=== PATIENT | male | born 1985 | race Caucasian/White ===

== ENCOUNTER 2018-08-21 12:50 | Inpatient (IN) | payer BC ==
[~2018-08-21 12:50] MED LIST: Iopamidol 370 76% 100 ML VIAL ONE
[2018-08-21 13:09] LABS: #Basophils 0.1 thou/uL (0.0-0.2); #Eosinphils 0.1 thou/uL (0.0-0.7); #Lymphocytes 2.5 thou/uL (1.20-3.40); #Monocytes 0.8 thou/uL (0.11-0.59); #Neutrophils 8.6 thou/uL (1.40-6.50); %Basophils 0.9 % (0.0-1.0); %Eosinophils 0.5 % (0.0-10.0); %Lymphocytes 21.1 % (21.0-51.0); %Monocytes 6.2 % (0.0-10.0); %Neutrophils 71.3 % (42.0-75.0); Hemoglobin 15.6 g/dL (14.0-18.0); Mean Corpuscular HGB CONC 33.3 g/dL (32.0-36.0); Mean Corpuscular Hemoglobin 28.8 pg (27.0-31.0); Mean Corpuscular Volume 86.4 fL (78.0-98.0); Mean Platelet Volume 7.4 fL (7.4-10.4); Platelet Count 273 thou/uL (130-400); RBC Distribution Width 12.2 % (11.5-14.5); Red Blood Cell (RBC) Count 5.41 mill/uL (4.70-6.10)
[2018-08-21] MEDS ORDERED: Glycopyrrolate 0.2 MG/ML 5 ML SYRINGE ONE (13:14)
[2018-08-21] MEDS ORDERED: Ondansetron PF 4 MG/2 ML Vial ONE (13:14)
[2018-08-21] MEDS ORDERED: Vecuronium 10 MG VIAL ONE ×2 (13:14→13:44)
[2018-08-21] MEDS ORDERED: ePHEDrine/0.9% NaCl/PF SYRINGE 50 mg/10 ml ONE (13:14)
[2018-08-21] MEDS ORDERED: Heparin 5,000 UNITS/ML VIAL ONE (13:14)
[2018-08-21] MEDS ORDERED: Papaverine 60 MG/2 ML VIAL ONE (13:14)
[2018-08-21] MEDS ORDERED: Calcium Chloride 1 GM/10 ML Abboject SYRINGE ONE (13:14)
[2018-08-21] MEDS ORDERED: Lidocaine 2% PF 100 mg/5 ml Syringe ONE (13:14)
[2018-08-21] MEDS ORDERED: Cardioplegic Soln 1,000 ML BAG ONE (13:14)
[2018-08-21] MEDS ORDERED: Potassium Chloride 60 MEQ/30 ML VIAL ONE (13:14)
[2018-08-21] MEDS ORDERED: Protamine Sulfate 250 MG/25 ML VIAL ONE (13:14)
[2018-08-21] MEDS ORDERED: Thrombin 5000 UNITS/5 ML VIAL ONE (13:14)
[2018-08-21] MEDS ORDERED: Heparin 0 ML ONE (13:14)
[2018-08-21] MEDS ORDERED: Aminocaproic Acid 5 GM/20 ML VIAL ONE (13:14)
[2018-08-21] MEDS ORDERED: Heparin 30,000 units/30 ml VIAL ONE (13:14)
[2018-08-21] MEDS ORDERED: Dexamethasone 20 MG/5 ML VIAL ONE (13:14)
[2018-08-21] MEDS ORDERED: PHENYLEPHRINE-NS 100 MCG/ML 10 ML SYRINGE ONE (13:14)
[2018-08-21] MEDS ORDERED: Mannitol 12.5 GM/50 ML ONE (13:14)
[2018-08-21] MEDS ORDERED: Magnesium 5 GM/10 ML VIAL ONE (13:14)
[2018-08-21] MEDS ORDERED: Ketorolac Tromethamine 30 MG/ML VIAL ONE (13:14)
[2018-08-21] MEDS ORDERED: Sodium Bicarb 50 MEQ/50 ML VIAL ONE (13:14)
[2018-08-21 13:15] LABS: Prothrombin Time 13.3 SEC (12.0-14.7)
[2018-08-21] MEDS ORDERED: Midazolam HCl 2 mg/2 ml Vial ONE ×2 (13:15→13:44)
[2018-08-21 13:26] LABS: PTT 136.3 SEC (22.9-36.1)
[2018-08-21 13:32] LABS: ALT (SGPT) 18 U/L (8-55); AST (SGOT) 25 U/L (5-34); Alkaline Phosphatase 104 U/L (40-150); Anion Gap 14 mmol/L (10-20); BUN (Urea Nitrogen) 11 mg/dL (8.9-20.6); Bilirubin, Total 0.5 mg/dL (0.2-1.2); CK (CPK) 221 U/L (30-200); Calc. Creatinine Clearance 0 mL/min (70-130); Calcium 9.5 mg/dL (7.8-10.44); Carbon Dioxide 19 mmol/L (22-29); Chloride 107 mmol/L (98-107); Estimated GFR-MDRD Greater than 90; Globulin 2.5 g/dL (2.4-3.5); Glucose 94 mg/dL (70-105); Potassium 3.7 mmol/L (3.5-5.1); Protein, Total 6.5 g/dL (6.0-8.3); Sodium 136 mmol/L (136-145)
[2018-08-21] MEDS ORDERED: Albumin 5% 500 ML ONE (13:34)
[2018-08-21 13:41] LABS: CKMB 33.1 ng/mL (0-6.6); Troponin I 2.226 ng/mL (< 0.028)
[2018-08-21] MEDS ORDERED: Midazolam HCl 5 mg/5 ml Vial ONE (13:44)
[2018-08-21] MEDS ORDERED: Dexmedetomidine 200 MCG/2 ML VIAL ONE (13:44)
[2018-08-21] MEDS ORDERED: Fentanyl 100 MCG/2 ML VIAL ONE (13:44)
[2018-08-21] MEDS ORDERED: Heparin 10,000 UNITS/1 ML VIAL 30,000 UNITS in Sodium Chloride 0.9% 1,000 ML FS SCH (13:45)
[2018-08-21] MEDS ORDERED: Lidocaine 1% (PF) 30 ML VIAL ONE (14:00)
[2018-08-21] MEDS ORDERED: Nitroglycerin 50 MG/250 ML BOT 250 ML ONE (14:05)
[2018-08-21] MEDS ORDERED: Clindamycin/D5W 900 mg/50 ml Premix Bag ONE (14:18)
[2018-08-21] MEDS ORDERED: Levofloxacin 500 mg/D5W 100 ml Premix Bag ONE (14:18)
--- NOTE | 2018-08-21 14:18 | HP ---
HISTORY OF PRESENT ILLNESS: Toni Martin is a 33-year-old white male who denies any previous episodes of chest discomfort. Last night at 7 p.m. while watching TV he started to have chest pressure. This continued until he went to sleep. He then was awakened at 3:30 a.m. with much more intense chest discomfort associated with diaphoresis, shortness of breath, and nausea, but no vomiting. The pain was not pleuritic. He went to the emergency room in [place] and was found to have changes consistent with anterolateral STEMI. He was given aspirin as well as heparin and placed on heparin drip and then helicoptered here. He continues to complain of discomfort at this time. PAST MEDICAL HISTORY: Denies history of hypertension, diabetes or hypercholesterolemia. Three or so years ago, he apparently twisted his ankle and then developed a pulmonary embolism. He was on Xarelto for 6-8 months and then stopped. MEDICATIONS: Unknown antidepressant. ALLERGIES: PENICILLIN. OPERATIONS: He underwent a right hip surgery recently for dysplasia. SOCIAL HISTORY: Smokes one half pack per day. He occasionally drinks 1 or 2 times per month. 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 FAMILY HISTORY: Mother had some type of heart disease who apparently of pulmonary embolism. REVIEW OF SYSTEMS: Twelve point review of systems otherwise unremarkable. PHYSICAL EXAMINATION: VITAL SIGNS: Blood pressure 120/72, pulse of 90. HEENT: PERRL. NECK: Supple. CHEST: Clear. CARDIAC: S1 and S2 are normal, without any S3, S4 or murmurs. ABDOMEN: Normal bowel sounds, without tenderness, organomegaly. EXTREMITIES: Revealed no clubbing, cyanosis or edema. NEUROLOGIC: Grossly intact. SKIN: Warm and dry. LABORATORY DATA: EKG reveals changes consistent with anterolateral STEMI. Blood tests from [place] are unremarkable except for white count 12,100. Troponin I in [place] was 2.023. Troponin I here is 2.226. MB 33.1. Electrolytes are normal. Creatinine 0.75, BUN 11. IMPRESSION: 1. Anterolateral ST-segment elevation myocardial infarction. 2. Smoker. 3. History of pulmonary embolism 3 years ago. 4. Recent right hip surgery. PLAN: The situation was discussed with the patient. It was recommended he undergo emergent cardiac catheterization. Risks were discussed including , myocardial infarction, dye reaction, vascular injury, CVA, transfusion, limb loss, renal loss, etc. Also, risk of intervention with PTCA and stent placement were discussed including , myocardial infarction, emergent CABG, restenosis, stent thrombosis, vessel perforation, etc. He does not have any other upcoming surgeries, does not have any history of gastrointestinal bleeding or stroke, and a drug-coated coated stent will be placed if needed. GEORGE
[2018-08-21] MEDS ORDERED: traMADol HCl 50 MG TAB PO PRN (14:21)
[2018-08-21] MEDS ORDERED: Heparin 10,000 UNITS/ 10 ML VIAL SLOW IVP SCH (14:21)
[2018-08-21] MEDS ORDERED: Nitroglycerin 0.4 MG TAB (25 Tab Bottle) SL PRN (14:21)
[2018-08-21] MEDS ORDERED: Sodium Chloride 0.9% 200 ML IV SCH (14:21)
[2018-08-21] MEDS ORDERED: Acetaminophen/Codeine 30-300mg Tablet PO PRN ×2 (14:21)
[2018-08-21] MEDS ORDERED: Sodium Chloride 0.9% 1,000 ML IV SCH (14:21)
[2018-08-21 14:23] LABS: Cardiac Risk 3.5 (Less than 4.5)
--- NOTE | 2018-08-21 16:01 | CON ---
DATE OF CONSULTATION: 08/21/2018 REASON FOR CONSULTATION: Evaluate patient for emergency coronary artery bypass grafting. HISTORY OF PRESENT ILLNESS: Mr. Martin is a 33-year-old gentleman who presented to the [facility] ER with chest pain. He was transferred here for further evaluation. He was found to have EKG cadena es and positive enzymes. His CK-MB was 33. Troponin was 2.2. He was taken to the cath lab manager emergent ly. On cardiac catheterization, his right coronary has minimal disease. On the left injection, he h as an occluded LAD with slow refill. The first and second diagonal have critical disease. He is cur rently in the recovery area, resting comfortably with minimal chest pain. Nitroglycerin has just bee n started and he is being taken emergently for coronary artery bypass grafting. PAST MEDICAL HISTORY: None. PAST SURGICAL HISTORY: Multiple orthopedic procedures including 2 hip surgeries for dysplasia and a shoulder surgery for a work-related injury. CURRENT MEDICATIONS: None. ALLERGIES: PENICILLIN. SOCIAL HISTORY: He does not use tobacco. REVIEW OF SYSTEMS: Not performed due to the acuity of the situation. PHYSICAL EXAMINATION: GENERAL: This is a well-developed, well-nourished man, resting comfortably in the recovery area. VITAL SIGNS: His heart rate is 65 and regular, blood pressure is 138/72. HEENT: Sclerae are nonicteric. Pupils are equal and round bilaterally. NECK: Supple without bruit. CHEST: Clear bilaterally. HEART: Rhythm is regular. ABDOMEN: Soft and nontender. EXTREMITIES: No cyanosis, clubbing or edema. VASCULAR: He has palpable carotid, radial, femoral and dorsalis pedis pulses bilaterally. He has an arterial sheath in his left groin. ASSESSMENT AND PLAN: This is a very pleasant 33-year-old gentleman with acute ST elevation myocardia l infarction today with critical anatomy. He is being taken for emergency coronary artery bypass gra fting with graft to LAD, D1 and D2.
[2018-08-21] MEDS ORDERED: HYDROcodone/Acetaminophen 5/325 mg Tablet PO PRN ×2 (17:59)
[2018-08-21] MEDS ORDERED: Bisacodyl 10 MG SUPP PR PRN (17:59)
[2018-08-21] MEDS ORDERED: Ondansetron PF 4 MG/2 ML Vial IVP PRN (17:59)
[2018-08-21] MEDS ORDERED: Norepinephrine 8 MG/0.9% NS 250 ML IVPB PRN (17:59)
[2018-08-21] MEDS ORDERED: Bisacodyl 5 MG TAB PO PRN (17:59)
[2018-08-21] MEDS ORDERED: Hetastarch 6% 500 ML 500 ML IVPB PRN (17:59)
[2018-08-21] MEDS ORDERED: Nitroglycerin 50 MG/250 ML BOT 250 ML IVPB PRN (17:59)
[2018-08-21] MEDS ORDERED: hydrALAZINE 20 MG/ML VIAL SLOW IVP PRN (17:59)
[2018-08-21] MEDS ORDERED: Acetaminophen 325 MG TAB PO PRN (17:59)
[2018-08-21] MEDS ORDERED: Mag-Al 1200 mg/1200 mg/30 ML UDCUP PO PRN (17:59)
[2018-08-21] MEDS ORDERED: Guaifenesin DM 100-10/5 ML UDCUP PO PRN (17:59)
[2018-08-21] MEDS ORDERED: Promethazine HCl 25 MG/ML VIAL IM PRN (17:59)
[2018-08-21] MEDS ORDERED: Potassium Chloride 20 MEQ/100 ML PREMIX BAG IVPB PRN (17:59)
[2018-08-21] MEDS ORDERED: Fentanyl 100 MCG/2 ML VIAL SLOW IVP PRN (17:59)
[2018-08-21] MEDS ORDERED: Magnesium 2 GM/50 ML 2 GM in Premix Bag 1 BAG IVPB SCH (18:00)
[2018-08-21] MEDS ORDERED: D5 1/2 NS w/20 mEq KCL 1,000 ML IV SCH (18:00)
[2018-08-21] MEDS ORDERED: Dextrose 50% Abboject 50 ML SYRINGE SLOW IVP PRN (18:11)
[2018-08-21] MEDS ORDERED: Dextrose 5% in Water 1,000 ML IV PRN (18:11)
[2018-08-21 18:19] LABS: #Basophils 0.1 thou/uL (0.0-0.2); #Eosinphils 0.2 thou/uL (0.0-0.7); #Lymphocytes 1.7 thou/uL (1.20-3.40); #Monocytes 0.8 thou/uL (0.11-0.59); #Neutrophils 15.8 thou/uL (1.40-6.50); %Basophils 0.3 % (0.0-1.0); %Eosinophils 0.9 % (0.0-10.0); %Lymphocytes 9.4 % (21.0-51.0); %Monocytes 4.3 % (0.0-10.0); %Neutrophils 85.1 % (42.0-75.0); Hemoglobin 12.4 g/dL (14.0-18.0); Mean Corpuscular HGB CONC 32.6 g/dL (32.0-36.0); Mean Corpuscular Hemoglobin 28.4 pg (27.0-31.0); Mean Corpuscular Volume 86.9 fL (78.0-98.0); Mean Platelet Volume 7.6 fL (7.4-10.4); Platelet Count 190 thou/uL (130-400); RBC Distribution Width 12.1 % (11.5-14.5); Red Blood Cell (RBC) Count 4.37 mill/uL (4.70-6.10); White Blood Cell (WBC) Count 18.5 thou/uL (4.8-10.8)
[2018-08-21] MEDS: Ketorolac Tromethamine 30 MG/ML VIAL IVP SCH ×2 (18:20→23:33)
[2018-08-21] MEDS: Insulin Regular 300 UNITS/3 ML VIAL SC PRN ×2 (18:22→20:33)
[2018-08-21 18:25] LABS: INR-International Normal Ratio 1.3; PTT 37.5 SEC (22.9-36.1); Prothrombin Time 16.5 SEC (12.0-14.7)
[2018-08-21 18:31] VITALS: BMI 23.7
[2018-08-21 18:51] LABS: Anion Gap 8 mmol/L (10-20); BUN (Urea Nitrogen) 9 mg/dL (8.9-20.6); Calc. Creatinine Clearance 166 mL/min (70-130); Calcium 7.8 mg/dL (7.8-10.44); Carbon Dioxide 24 mmol/L (22-29); Chloride 112 mmol/L (98-107); Estimated GFR-MDRD Greater than 90; Glucose 147 mg/dL (70-105); Potassium 3.8 mmol/L (3.5-5.1); Sodium 140 mmol/L (136-145)
[2018-08-21] MEDS: Fentanyl 100 MCG/2 ML VIAL SLOW IVP PRN ×2 (19:02→21:43)
[2018-08-21] MEDS: Clindamycin/D5W 900 MG in Premix Bag 1 BAG IVPB SCH (19:40)
[2018-08-21] MEDS: Famotidine/PF 20 mg/2ml Vial SLOW IVP SCH (19:40)
--- NOTE | 2018-08-21 20:06 | RAD ---
CHEST ONE VIEW: 08/21/18 HISTORY: Post open heart surgery. COMPARISON: Radiograph 08/21/18. FINDINGS: A central venous catheter tip is at the cavoatrial junction. Left sided drain is present. Likely a sm all left basilar pneumothorax versus pneumomediastinum. IMPRESSION: Expected postoperative findings. POS: [facility]
--- NOTE | 2018-08-21 22:01 | OP ---
DATE OF PROCEDURE: 08/21/2018 PREOPERATIVE DIAGNOSIS: Non-ST elevation myocardial infarction with acute LAD occlusion. POSTOPERATIVE DIAGNOSIS: Non-ST elevation myocardial infarction with acute LAD occlusion. PROCEDURES: 1. Emergency coronary artery bypass grafting x3 1. Left internal mammary artery to 2.0 mm distal LAD - good conduit target. 2. Reverse saphenous vein to 2.5 mm D1. 3. Reversed saphenous vein to 2.5 mm D2. SURGEONS: Stefano Snell and Dr. Negro Padilla. ANESTHESIA: General endotracheal - Rito Daniel M.D. PUMP TIME: 59 minutes. CROSS-CLAMP TIME: 37 minutes. LOW CORE TEMP: 32-degree Celsius. REMELT FURNACE EXPEDITER: Brenda Norton. DRAINS: 24-[place] chest tubes x2. DRIPS: None. TRANSFUSIONS: None. DESCRIPTION OF PROCEDURE: After consent was obtained, patient was brought to operating room and placed in supine position on the operating room table. Appropriate anesthetic monitor was placed and general endotracheal anesthesia induced. Chest and legs were prepped and draped in usual sterile fashion. Greater saphenous vein harvested from the left lower extremity utilizing an endoscopic technique. Wound was closed in layers. Median sternotomy was performed. Left internal mammary artery was harvested as a pedicle graft. The patient was systemically heparinized. Distal pedicle was divided and infused with papaverine. Thymic fat and pericardium were divided with electrocautery. Pericardial stay sutures were placed. Aortic and atrial cannulation was performed. After adequate heparinization, retrograde prime was performed. The patient was placed on cardiopulmonary bypass. Distal targets were marked. Aortic cross-clamp was applied and antegrade sanguinous cardioplegic arrest obtained. One liter of antegrade cold cardioplegia was given. Topical cold solution was used. Reverse saphenous vein was anastomosed to the D1 in end-to- side fashion measuring 7.0 suture. Anastomosis tested and was hemostatic. Reverse vein was anastomosed to D2 in end-to-side fashion with running 7-0 Prolene suture. Anastomosis tested and was hemostatic. Mammary artery was brought through a window in the pericardium and anastomosed the LAD in end-to- side fashion with running 7-0 Prolene suture. On release of mammary clamps, good hooding in the anastomosis and good distal flow. Pedicle screws with interrupted 6-0 Prolene suture. Cross-clamp was removed and partial occluding clamp placed. Saphenous veins to the D2 was anastomosed to aortic root with running 6-0 Prolene suture. Saphenous vein to the D1 was anastomosed to the sidewall of the D2 graft. Partial occluding clamp was removed and grafts deaired. Anastomoses were inspected for hemostasis, which was good. The patient was warmed and weaned from cardiopulmonary bypass. After resumption of sinus rhythm, good hemodynamics, and temperature greater than 36.5, bypass was discontinued. Transfusion was given. Protamine was administered. Decannulation performed and pursestring sutures secured. A 24-[place]er chest tubes x2 were placed in mediastinum. Vancomycin paste was placed on the sternal edges. After adequate hemostasis had been obtained, sternum was closed with #7 wire. Sternum was treated with platelet-rich part plasma and wires twisted. Wounds irrigated, treated with platelet-poor plasma, and closed in multiple layers. Needle, sponge, and instrument counts were all reported correct at the end of the procedure. The patient was transferred to the intensive care unit in stable, but critical condition. GEORGE
[2018-08-22] MEDS: Insulin Regular 300 UNITS/3 ML VIAL SC PRN ×2 (00:04→08:43)
[2018-08-22 00:20] LABS: Potassium 4.4 mmol/L (3.5-5.1)
[2018-08-22] MEDS: Fentanyl 100 MCG/2 ML VIAL SLOW IVP PRN ×5 (00:30→22:35)
[2018-08-22] MEDS: Clindamycin/D5W 900 MG in Premix Bag 1 BAG IVPB SCH ×2 (01:57→08:03)
[2018-08-22 04:42] LABS: #Lymphocytes 0.7 thou/uL (1.20-3.40); #Monocytes 0.8 thou/uL (0.11-0.59); #Neutrophils 12.7 thou/uL (1.40-6.50); %Basophils 0.1 % (0.0-1.0); %Lymphocytes 4.8 % (21.0-51.0); %Monocytes 5.7 % (0.0-10.0); %Neutrophils 89.4 % (42.0-75.0); Hemoglobin 12.5 g/dL (14.0-18.0); Mean Corpuscular HGB CONC 32.8 g/dL (32.0-36.0); Mean Corpuscular Hemoglobin 28.7 pg (27.0-31.0); Mean Corpuscular Volume 87.6 fL (78.0-98.0); Mean Platelet Volume 7.4 fL (7.4-10.4); Platelet Count 218 thou/uL (130-400); RBC Distribution Width 12.3 % (11.5-14.5); Red Blood Cell (RBC) Count 4.35 mill/uL (4.70-6.10); White Blood Cell (WBC) Count 14.2 thou/uL (4.8-10.8)
[2018-08-22 04:49] LABS: Anion Gap 9 mmol/L (10-20); BUN (Urea Nitrogen) 7 mg/dL (8.9-20.6); Calc. Creatinine Clearance 156 mL/min (70-130); Calcium 8.6 mg/dL (7.8-10.44); Carbon Dioxide 25 mmol/L (22-29); Chloride 112 mmol/L (98-107); Estimated GFR-MDRD Greater than 90; Glucose 123 mg/dL (70-105); Potassium 4.5 mmol/L (3.5-5.1); Sodium 141 mmol/L (136-145)
[2018-08-22 05:02] LABS: CKMB 47.9 ng/mL (0-6.6); Troponin I 6.454 ng/mL (< 0.028)
[2018-08-22] MEDS: Ketorolac Tromethamine 30 MG/ML VIAL IVP SCH ×3 (05:30→17:17)
[2018-08-22] MEDS: Aspirin 325 MG TAB PO SCH (08:02)
[2018-08-22] MEDS: Famotidine/PF 20 mg/2ml Vial SLOW IVP SCH (08:03)
[2018-08-22] MEDS ORDERED: Magnesium 2 GM/50 ML 2 GM in Premix Bag 1 BAG IVPB SCH (09:00)
--- NOTE | 2018-08-22 09:40 | RAD ---
PORTABLE CHEST: Date: 08/22/18 HISTORY: Postop sternotomy follow-up. COMPARISON: 08/21/18. FINDINGS: Postop sternotomy change. Left chest tube and drainage catheters. Lung de la cruz are clear. IMPRESSION: Postop changes. No acute interval change. POS: [facility]
[2018-08-22] MEDS ORDERED: Mag-Al 1200 mg/1200 mg/30 ML UDCUP PO PRN (10:25)
[2018-08-22] MEDS ORDERED: Fentanyl 100 MCG/2 ML VIAL SLOW IVP PRN (10:25)
[2018-08-22] MEDS ORDERED: Bisacodyl 5 MG TAB PO PRN (10:25)
[2018-08-22] MEDS ORDERED: Artificial Tear Sol 15 ML BOT EA EYE PRN (10:25)
[2018-08-22] MEDS ORDERED: Mineral Oil ENEMA PR PRN (10:25)
[2018-08-22] MEDS ORDERED: Ondansetron PF 4 MG/2 ML Vial IVP PRN (10:25)
[2018-08-22] MEDS ORDERED: Acetaminophen 325 MG TAB PO PRN (10:25)
[2018-08-22] MEDS ORDERED: Bisacodyl 10 MG SUPP PR PRN (10:25)
[2018-08-22] MEDS ORDERED: diphenhydrAMINE 25 MG CAP PO PRN (10:25)
[2018-08-22] MEDS ORDERED: Milk Of Magnesia 30 ML UDCUP PO PRN (10:25)
[2018-08-22] MEDS ORDERED: HYDROcodone/Acetaminophen 10/325 mg Tablet PO PRN (10:25)
[2018-08-22] MEDS ORDERED: Guaifenesin DM 100-10/5 ML UDCUP PO PRN (10:25)
[2018-08-22] MEDS ORDERED: Nitroglycerin 0.4 MG TAB (25 Tab Bottle) SL PRN (10:25)
[2018-08-22] MEDS: HYDROcodone/Acetaminophen 10/325 mg Tablet PO PRN ×2 (16:27→21:01)
[2018-08-22] MEDS: Atorvastatin Calcium 40 MG TAB PO SCH (21:01)
[2018-08-22] MEDS: Famotidine 20 MG TAB PO SCH (21:01)
[2018-08-23] MEDS: Ketorolac Tromethamine 30 MG/ML VIAL IVP SCH ×4 (00:14→17:58)
[2018-08-23] MEDS: HYDROcodone/Acetaminophen 10/325 mg Tablet PO PRN ×5 (00:15→20:52)
[2018-08-23 05:52] LABS: D-Dimer Test 0.52 *mcg/mL (0.27-0.43); PTT 36.2 SEC (22.9-36.1); Prothrombin Time 13.6 SEC (12.0-14.7)
[2018-08-23] MEDS: Aspirin 325 mg Enteric Coated Tablet PO SCH (09:24)
[2018-08-23] MEDS: Famotidine 20 MG TAB PO SCH ×2 (09:25→20:57)
[2018-08-23] MEDS: Aspirin 325 MG TAB PO SCH (17:52)
[2018-08-23] MEDS: Zolpidem Tartrate 5 MG TAB PO PRN ×3 (20:52→20:57)
[2018-08-23] MEDS: Atorvastatin Calcium 40 MG TAB PO SCH (20:55)
[2018-08-23] MEDS: Metoprolol Tartrate 25 MG TAB PO SCH (20:58)
[2018-08-24] MEDS: Ketorolac Tromethamine 30 MG/ML VIAL IVP SCH ×2 (06:36)
--- NOTE | 2018-08-24 08:06 | DIS ---
DATE OF ADMISSION: 08/21/2018 DATE OF DISCHARGE: 08/24/[address] elevation myocardial infarction. 2. Severely depressed left ventricular ejection fraction. PROCEDURES: 1. Cardiac catheterization. 2. Emergency coronary artery bypass grafting x3 - left internal mammary artery to LAD, saphenous vei n graft to D1 and D2. DESCRIPTION OF HOSPITAL STAY: Mr. Martin presented to the [place] ER with a ST elevation myoca rdial infarction. Cardiac catheterization revealed occlusion of his LAD and near occlusion of two di agonal branches. He was emergently taken to the operating room and underwent bypass as above. He rhodes s done well postoperatively, being discharged to home in good condition to follow up with me in [address] Neal in a month. DISCHARGE MEDICATIONS: 1. Aspirin 325 mg every day. 2. Lipitor 40 mg at bedtime. 3. Lopressor 12.5 mg b.i.d. 4. [place] 10/325 1-2 q.6 hours p.r.n. pain.
[2018-08-24 09:10] VITALS: TEMP 98.2
[2018-08-24] MEDS: Famotidine 20 MG TAB PO SCH (09:59)
[2018-08-24] MEDS: Aspirin 325 mg Enteric Coated Tablet PO SCH (09:59)
[2018-08-24] MEDS: Metoprolol Tartrate 25 MG TAB PO SCH (10:02)
[2018-08-24] MEDS: HYDROcodone/Acetaminophen 10/325 mg Tablet PO PRN (10:06)
[2018-08-24] MEDS: Aspirin 325 MG TAB PO SCH (10:10)
[2018-08-24 10:57] LABS: Cardiolipin IgA Ab 1.5 APL-U/mL (<14 Negative); Cardiolipin IgG Ab 0.5 GPL-U/mL (<10 Negative); Cardiolipin IgM Ab 2.2 MPL-U/mL (<10 Negative); EliA APS New Method **** NEW METHOD ****
[2018-08-24 14:14] VITALS: BP 126/80
[2018-08-24 14:25] LABS: Factor VIII Test 351.5 % ACTIVE (56-157)
[2018-08-25 09:39] LABS: HEX PHOS LA Tube 1 63.1 SEC; HEX PHOS LA Tube 2 56.5 SEC; Hexagonal Phospholipid Neut 6.6 SEC (0-8.0)
[2018-08-25 09:41] LABS: Protein C Activity 113 % (78-152)
[2018-08-27 20:10] LABS: Activated Protein C Resistance 2.8 ratio (.)
== END 2018-08-24 13:00 | disposition home or self-care (01) | DRG 234 ==
LOC: ERS 12:50 → 2NO 13:17 → SDC 13:31 → CCU 14:00 → 2NO 08-22 23:34
PROVIDERS: ADMIT Internal Medicine Cardiovascular Disease; ATTEND Internal Medicine Cardiovascular Disease
PROC: 02100Z9 Bypass Coronary Artery, One Artery from Left Internal Mammary, Open Approach (ICD-10-PCS; principal; 2018-08-21)
PROC: 4A023N7 Measurement of Cardiac Sampling and Pressure, Left Heart, Percutaneous Approach (ICD-10-PCS; 2018-08-21)
PROC: 0211093 Bypass Coronary Artery, Two Arteries from Coronary Artery with Autologous Venous Tissue, Open Approach (ICD-10-PCS; 2018-08-21)
PROC: 06BQ4ZZ Excision of Left Saphenous Vein, Percutaneous Endoscopic Approach (ICD-10-PCS; 2018-08-21)
PROC: 5A1221Z Performance of Cardiac Output, Continuous (ICD-10-PCS; 2018-08-21)
PROC: B2111ZZ Fluoroscopy of Multiple Coronary Arteries using Low Osmolar Contrast (ICD-10-PCS; 2018-08-21)
DX: I21.09 ST elevation (STEMI) myocardial infarction involving other coronary artery of anterior wall (principal); Z86.711 Personal history of pulmonary embolism; Z79.01 Long term (current) use of anticoagulants; Z88.0 Allergy status to penicillin; F32.9 Major depressive disorder, single episode, unspecified; F17.210 Nicotine dependence, cigarettes, uncomplicated
CPT/HCPCS: 36415; 36416; 36430; 71045; 80048; 80061; 81240; 81241; 82550; 82553; 83090; 84484; 85025; 85240; 85300; 85303; 85305; 85307; 85347; 85379; 85598; 85610; 85730; 86147; 86850; 86900; 86901; 93005; 93010; 93306; 93454; 93798; C1769; C1887; J1100; J1644; J1815; J1885; J1956; J2001; J2150; J2250; J2405; J2440; J2720; J3010; J3370; J3475; J3480; J3490; J7050; P9045; S0017; S0028